=== PATIENT | female | born 1965 | race Caucasian/White ===

== ENCOUNTER 2025-01-23 12:32 | Emergency (ER) | payer BC, SELFPAY ==
[2025-01-23 12:36] VITALS: BP 151/105
[2025-01-23 12:59] LABS: Hematocrit 37.5 % (37.0-47.0); Hemoglobin 12.5 g/dL (12.0-16.0); Mean Corp Hgb Conc. 33.3 g/dL (33.0-37.0); Mean Corpuscular Volume 89.1 fL (81.0-99.0); Nucleated Red Blood Cells % 0 %; Platelet Count 237 10^3/uL (130-400); Red Cell Dist. Width 12.5 % (11.5-14.5)
[2025-01-23 13:00] LABS: HCG, Serum Qualitative Screen Negative
[2025-01-23 13:04] LABS: ALT (SGPT) 16 U/L (0-35); AST (SGOT) 22 U/L (14-36); Albumin 4.4 g/dl (3.5-5.0); Alkaline Phosphatase 54 U/L (38-126); Blood Urea Nitrogen 8 mg/dl (7-17); Calcium 9.9 mg/dl (8.4-10.2); Carbon Dioxide 26 mmol/L (22-30); Chloride 110 mmol/L (98-107); Glucose 123 mg/dl (70-99); Potassium 4.6 mmol/L (3.5-5.1); Sodium 141 mmol/L (135-145); Total Protein 7.1 g/dl (6.3-8.2); eGFR > 60.00
[2025-01-23 13:13] LABS: Troponin I < 0.012 ng/ml
[2025-01-23 14:26] VITALS: BP 130/73
[2025-01-23 14:39] VITALS: BP 130/73; BMI 22.0
--- NOTE | 2025-01-23 14:57 | ED.GENMED ---
History of Present Illness
General
Chief Complaint: Chest Pain
Time Seen by Provider: 01/23/25 14:25
History of Present Illness
History of Present Illness:
59-year-old female without significant past medical history presenting for left-sided chest pressure. Patient notes that yesterday she started to feel unwell with headache. Today she was doing laundry and felt some pressure in the left side of her
chest. Pain is worse with demonstration. Denies any known cardiac history, however does report family history. Denies any cough or fever or any known sick contacts. Denies any radiation of pain. Denies any history of blood clots, recent
surgery, recent travel. Denies abdominal pain or GI symptoms. Denies additional acute medical complaints
Phy Exam
Physical Exam
Physical Exam:
General: Well-appearing, no clinical signs of dehydration, nontoxic and in no acute distress
HEENT: protecting airway
Neck: appears supple
CV: Normal heart rate, regular rhythm
Resp: No accessory muscle use, no increased work of breathing, lungs clear to auscultation bilaterally
Abd: Soft and non-distended, no tenderness to palpation
Extremities: No deformities, no swelling, no erythema
Neuro: alert, no focal neurologic deficit
: deferred
Rectal: deferred
Psych: Normal affect
Skin: Intact
Scores
Heart Score for Chest Pain Patients
STEMI patient?: No
History: Slightly or Non-Suspicious
ECG: Nonspecific Repolarization
Age: >45 - <65 years
Risk Factors: 1 or 2 Risk Factors
Troponin: </= Normal Limit
Heart Score for Chest Pain Patients: 3
Heart Score Risk: 2.5% MACE over next 6 weeks
Course
Orders/Labs/Results
Orders:
Orders
01/23/25 12:32
EKG [Electrocardiogram (*1)] Urgent
Reason for Study: Chest Pain
01/23/25 12:33
EKG- Treatment ONCE
01/23/25 12:39
Test Result ONCE
01/23/25 12:43
Complete Blood Count/With Diff Urgent
Comprehensive Metabolic Panel Urgent
HCG, Serum Qualitative Screen Urgent
Comment: Notify provider if positive test present
Troponin I Urgent
01/23/25 14:46
EKG- Treatment ONCE
CR Chest - 2 Views Urgent
Comment:
Reason For Exam: chest pain
01/23/25 14:47
Electrocardiogram (*1) Urgent
Reason for Study: Chest Pain
01/23/25 14:57
D-Dimer Urgent
Abnormal Lab Results
01/23/25
12:43
Chloride 110 H mmol/L
(98-107)
Glucose 123 H mg/dl
(70-99)
01/23/25 12:43
01/23/25 12:43
Vital Signs
Initial and Last Documented VS:
Initial Vital Signs
Temp Pulse Resp BP Pulse Ox
98.4 F 96 16 151/105 100
01/23/25 12:36 01/23/25 12:36 01/23/25 12:36 01/23/25 12:36 01/23/25 12:36
Last Documented Vital Signs
Temp Pulse Resp BP Pulse Ox
97.6 F 73 15 130/73 98
01/23/25 14:39 01/23/25 14:39 01/23/25 14:39 01/23/25 14:39 01/23/25 14:58
MDM/Problems Addressed
MDM/Problems Addressed:
59-year-old female presenting to the emergency department for left-sided chest pressure. Patient reports symptoms started earlier this afternoon when she was doing laundry. Vital signs on arrival are significant for tachycardia.
On exam, patient is resting comfortably, no acute distress or discomfort. Notes that symptoms were preceded by headache and generally feeling unwell. Possible viral component to symptoms with inspiration. Denies any cough or fever with lower
suspicion for pneumonia. Will screen with chest x-ray imaging. EKG obtained on arrival, tachycardic, however nonischemic. Cannot satisfy PERC rule. Will send D-dimer. Troponin undetectable, lower suspicion for ACS, low risk by heart score.
Will screen with laboratory analysis, reassess
16:50 -dimer is negative. Chest x-ray without acute cardiopulmonary disease. Repeat EKG unchanged, patient hemodynamically stable. Feel stable for discharge with lower suspicion for acute serious pathology. However given age, recommending
outpatient cardiac follow-up for possible stress testing. Return precautions discussed and patient verbalized understanding
*Pulse Oximetry
SaO2: 98
Oxygen Mode of Delivery: Room air
Patient hypoxic: no
*EKG
Interpreted by ED Provider?: Yes
EKG Intrepretation Date: 01/23/25
EKG Intrepretation Time: 15:04
Interpretation: normal
Comparison EKG: no comparison EKG present
Heart Rate: 116
Rate: tachycardiac
Rhythm: sinus
[place]: normal axis
Interval: normal interval
QRS Pattern: normal QRS
Ischemia: non-specific ST changes
*Critical Care Note
Total Time (30-74mins, 75-104mins- exclusive of procedures): Not Applicable
ED Attending Note
-
Portions of this chart may have been created with voice recognition software.� Occasional wrong word or��sound alike� substitutions may have occurred due to the inherent limitations of voice recognition software.
Discharge Plan
Departure
Prescriptions:
No Action
No Current Medications
0
Referrals:
Damion Reid MD [Family Provider, Internal Medicine]
Interventions
Interventions:
*Risk Screen - Suicide Last Done: 01/23/25 12:36
*General Assessment Last Done: 01/23/25 14:39
*Neglect/Abuse Screening Last Done: 01/23/25 12:36
*ED- Fall Risk Assessment Last Done: 01/23/25 14:39
*ED COVID-19 Vaccine History Last Done: 01/23/25 14:39
ED- Cardiac Assessment Last Done: 01/23/25 14:39
Discharge Date and Time
Print Language: BURKIN[place]
[2025-01-23 15:17] LABS: D-Dimer < 0.27 ug/mlFEU (0.00-0.50)
[2025-01-23 17:03] VITALS: BP 105/63
== END 2025-01-23 17:16 | disposition home or self-care (01) ==
LOC: EMR 12:32
PROVIDERS: Student in an Organized Health Care Education/Training Program; EMERGENCY PHYSICIAN Student in an Organized Health Care Education/Training Program; FAMILY PHYSICIAN Internal Medicine
DX: R07.89 Other chest pain (principal); R00.0 Tachycardia, unspecified
CPT/HCPCS: 99285; 71046; 80053; 84484; 84703; 85025; 85379; 93005